=== PATIENT | male | born 1950 | race Caucasian/White ===

== ENCOUNTER 2016-04-28 12:18 | Emergency (ER) | payer OTHER, MEDICARE ==
--- NOTE | 2016-04-28 12:44 | ER Document Report ---
ED Medical Screen (RME) - General Stated Complaint: COUGH, CONGESTION Notes: 65 yo male c/o coughing up blood. pt is chemo patient. Lung cancer, leukemia, throat cancer. received chemo yesterday. reports hemoptysis and blood from feeding tube. Oncologist in [place]. no fever. + headache. pt has trach. TRAVEL OUTSIDE OF THE [place] IN LAST 30 DAYS: No - Related Data Allergies/Adverse Reactions: No Known Allergies Allergy (Unverified 05/22/14 14:33) Physical Exam - Vital signs Vitals: Temp Pulse Resp BP Pulse Ox 98.5 F 78 18 135/79 H 95 04/28/16 12:27 04/28/16 12:27 04/28/16 12:27 04/28/16 12:27 04/28/16 12:27 Course - Vital Signs Vital signs: Temp Pulse Resp BP Pulse Ox 98.5 F 78 18 135/79 H 95 04/28/16 12:27 04/28/16 12:27 04/28/16 12:27 04/28/16 12:27 04/28/16 12:27
[2016-04-28 13:08] LABS: ABSOLUTE LYMPHOCYTES (AUTO) 0.7 10^3/uL (0.5-4.7); ABSOLUTE NEUT (AUTO) 4.4 10^3/uL (1.7-8.2); BASOPHILS % (AUTO) 0.1 % (0-2); HEMATOCRIT 34.7 % (37.9-51.0); HGB HCT DIFFERENCE 1.3; LYMPHOCYTES % (AUTO) 12.7 % (13-45); MEAN CORPUSCULAR HEMOGLOBIN 32.3 pg (27.0-33.4); MEAN CORPUSCULAR HGB CONC 34.6 g/dL (32.0-36.0); MEAN CORPUSCULAR VOLUME 93 fl (80-97); MONOCYTES % (AUTO) 0.6 % (3-13); RED BLOOD COUNT 3.72 10^6/uL (4.35-5.55); RED CELL DISTRIBUTION WIDTH 13.7 % (11.5-14.0); SEGMENTED NEUTROPHILS % (AUTO) 86.6 % (42-78); WHITE BLOOD COUNT 5.1 10^3/uL (4.0-10.5)
[2016-04-28 13:14] LABS: PROTHROMBIN TIME 13.9 SEC (11.4-15.4)
[2016-04-28 13:28] LABS: ALANINE AMINOTRANSFERASE 56 U/L (21-72); ALBUMIN 3.5 g/dL (3.5-5.0); ALKALINE PHOSPHATASE 83 U/L (38-126); ANION GAP 8 (5-19); ASPARTATE AMINO TRANSFERASE 27 U/L (17-59); BILIRUBIN,TOTAL 1.2 mg/dL (0.2-1.3); BLOOD UREA NITROGEN 19 mg/dL (7-20); CALCIUM 9.1 mg/dL (8.4-10.2); CARBON DIOXIDE 31 mmol/L (22-30); CHLORIDE 100 mmol/L (98-107); CREATININE RESULT 0.72 mg/dL (0.52-1.25); GLUCOSE 105 mg/dL (75-110); POTASSIUM 4.7 mmol/L (3.6-5.0); SODIUM 139.2 mmol/L (137-145); TOTAL PROTEIN 5.9 g/dL (6.3-8.2)
--- NOTE | 2016-04-28 13:56 | ER Document Report ---
ED Respiratory Problem - General Mode of Arrival: Ambulatory Information source: Patient TRAVEL OUTSIDE OF THE [place] 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 Patient describes the sputum as being dark red with clots and mostly originating from his nose with some from his G-tube. Patient states that he is eating by mouth, and the G-tube was placed in preemptively. Patient denies fever. Patient claims that his trach might have been moved out of placed yesterday, but is in the proper orientation now. Patient states that he was diagnosed with laryngeal cancer in February 2016 by the [facility] and had a tracheotomy placed in on 03/14/2016. [facility] found lesions to the patient's lungs and are closely monitoring it. Patient gets chemotherapy every Tuesday at the [facility], with the last treatment yesterday. Patient was last seen in the ED on August 2014 with a low white and platelet count secondary to chemotherapy he was receiving for hairy cell leukemia by Dr. Nix. Patient's current oncologist is at the [facility]. Patient's primary care provider is the [facility]. (MAX REEDER) - Related Data Allergies/Adverse Reactions: No Known Allergies Allergy (Unverified 05/22/14 14:33) Past Medical History - General Information source: Patient - Social History Smoking Status: Former Smoker Chew tobacco use (# tins/day): No Frequency of alcohol use: None Drug Abuse: None Family History: Reviewed & Not Pertinent Patient has suicidal ideation: No Patient has homicidal ideation: No Renal/ Medical History: Denies: Hx Peritoneal Dialysis Malignancy Medical History: Reports Hx Leukemia - hairy cell, Reports Hx Lung Cancer, Reports Other - laryngeal cancer Past Surgical History: Reports: Hx Abdominal Surgery - G-tube in place, Other - Trach in place <MAX REEDER - Last Filed: 04/28/16 14:04> Review of Systems - Review of Systems Constitutional: No symptoms reported EENT: See HPI, Nose discharge - dark red blood Cardiovascular: No symptoms reported Respiratory: See HPI, Cough, Hemoptysis Gastrointestinal: See HPI, Other - blood in G-tube Genitourinary: No symptoms reported Male Genitourinary: No symptoms reported Musculoskeletal: No symptoms reported Skin: No symptoms reported Hematologic/Lymphatic: No symptoms reported Neurological/Psychological: No symptoms reported -: Yes All other systems reviewed and negative <MAX REEDER - Last Filed: 04/28/16 14:04> Physical Exam - Vital signs Interpretation: Normal - General General appearance: Alert In distress: None - HEENT Head: Normocephalic, Atraumatic Eyes: Normal Extraocular movements intact: Yes Pupils: PERRL Pharynx: Other - Mass to the posterior left tongue. No active bleeding. Uvula is visualized.. No: Normal Neck: Other - trach in place. No: Normal - Respiratory Respiratory status: No respiratory distress Breath sounds: Normal - Cardiovascular Rhythm: Regular Heart sounds: Normal auscultation - Abdominal Inspection: Other - G-tube in place with dark red blood. No: Normal Distension: No distension Tenderness: Nontender - Back Back: Normal - Extremities General upper extremity: Normal inspection, Normal ROM General lower extremity: Normal inspection, Normal ROM, Normal weight bearing - Neurological Neuro grossly intact: Yes - Psychological Associated symptoms: Normal affect, Normal mood - Skin Skin Temperature: Warm Skin Moisture: Dry Skin Color: Normal <MAX REEDER - Last Filed: 04/28/16 14:04> <GENOVEVA LOJA - Last Filed: 04/28/16 18:26> - Vital signs Vitals: Temp Pulse Resp BP Pulse Ox 98.5 F 78 18 135/79 H 95 04/28/16 12:27 04/28/16 12:27 04/28/16 12:27 04/28/16 12:27 04/28/16 12:27 (MAX REEDER) (GENOVEVA LOJA) Course - Laboratory Result Diagrams: 04/28/16 12:55 04/28/16 12:55 <MAX REEDER - Last Filed: 04/28/16 14:04> - Laboratory Result Diagrams: 04/28/16 12:55 04/28/16 12:55 - Diagnostic Test Radiology reviewed: Image reviewed, Reports reviewed - CT scan shows the tracheostomy tube is located in the anterior mediastinal fat tissue anterior to the trachea. It does not enter the trachea. There is a large mass on the left posterior base of the tongue occluding much of the airway. - Consults Dr. Martin Time consulted: 18:00 Consulted provider: other - credit card control clerk ENT will see the patient in the emergency room at the . Dr. Zepeda Time consulted: 18:20 Consulted provider: other - Will accept in transfer to the emergency room at the and then will contact the ENT doctor. <GENOVEVA LOJA - Last Filed: 04/28/16 18:26> - Re-evaluation Re-evalutation: 04/28/16 16:29 Patient's tracheostomy tube sits anterior to the trachea in the mediastinal fat. 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 Phone call was made to the [facility] where the patient had his tracheostomy placed, they are on diversion and are not accepting patients. (GENOVEVA LOJA) - Vital Signs Vital signs: Temp Pulse Resp BP Pulse Ox 98.5 F 73 16 124/71 97 04/28/16 16:49 04/28/16 16:49 04/28/16 16:49 04/28/16 16:49 04/28/16 16:49 (MAX REEDER) (GENOVEVA LOJA) - Laboratory Laboratory results interpreted by ia: 04/28/16 04/28/16 12:55 12:55 RBC 3.72 L Hgb 12.0 L Hct 34.7 L Seg Neutrophils % 86.6 H Lymphocytes % 12.7 L Monocytes % 0.6 L Absolute Monocytes 0.0 L Carbon Dioxide 31 H Total Protein 5.9 L (MAX REEDER) (GENOVEVA LOJA) Discharge <MAX REEDER - Last Filed: 04/28/16 14:04> <GENOVEVA LOJA - Last Filed: 04/28/16 18:26> - Discharge Clinical Impression: Complication of tracheostomy tube, Posterior pharyngeal bleeding Condition: Stable Disposition: OTHER Additional Instructions: Go to the now to the emergency room where you will see Dr. Martin of the ENT department. Bravo Attestation: 04/28/16 18:26 I personally performed the services described in the documentation, reviewed and edited the documentation which was dictated to the scribe in my presence, and it accurately records my words and actions. (GENOVEVA LOJA) Scribe Documentation - Scribe Written by Bravo:: Bravo Cary, 04/28/2016 1402 acting as scribe for :: Jo <MAX REEDER - Last Filed: 04/28/16 14:04>
[2016-04-28] MEDS ORDERED: FUROSEMIDE INJ/PF 20 MG/2 ML SDV IV ONE (16:33)
[2016-04-28 18:40] VITALS: BP 120/65
== END 2016-04-28 19:02 ==
LOC: ER 12:18
DX: J95.01 Hemorrhage from tracheostomy stoma (principal); R05 Cough; C91.40 Hairy cell leukemia not having achieved remission; C32.9 Malignant neoplasm of larynx, unspecified; C34.90 Malignant neoplasm of unspecified part of unspecified bronchus or lung; Y83.3 Surgical operation with formation of external stoma as the cause of abnormal reaction of the patient, or of later complication, without mention of misadventure at the time of the procedure; Z93.1 Gastrostomy status; Z79.899 Other long term (current) drug therapy
CPT/HCPCS: 36415; 70491; 80053; 85025; 85610; 99284; J1940

== ENCOUNTER 2016-09-09 09:51 | Emergency (ER) | payer OTHER, MEDICARE ==
--- NOTE | 2016-09-09 10:02 | ER Document Report ---
ED Medical Screen (RME) - General Chief Complaint: Problem with Feeding Tube Stated Complaint: FEEDING TUBE PROBLEM Time Seen by Provider: 09/09/16 10:01 TRAVEL OUTSIDE OF THE [place] IN LAST 30 DAYS: No - HPI Notes: 09/09/16 10:01 Feeding tube is leaking around the ostomy site near the balloon check possibly replacement of feeding tube. - Related Data Allergies/Adverse Reactions: No Known Allergies Allergy (Unverified 09/09/16 09:53) Past Medical History Renal/ Medical History: Denies: Hx Peritoneal Dialysis Malignancy Medical History: Reports Hx Leukemia - hairy cell, Reports Hx Lung Cancer Past Surgical History: Reports: Hx Abdominal Surgery - G-tube in place, Other - Trach in place Physical Exam - Vital signs Vitals: Temp Pulse Resp BP Pulse Ox 98.6 F 88 26 H 111/55 L 98 09/09/16 09:53 09/09/16 09:53 09/09/16 09:53 09/09/16 09:53 09/09/16 09:53 - Abdominal Notes: Drainage around the feeding tube Course - Vital Signs Vital signs: Temp Pulse Resp BP Pulse Ox 98.6 F 88 26 H 111/55 L 98 09/09/16 09:53 09/09/16 09:53 09/09/16 09:53 09/09/16 09:53 09/09/16 09:53
--- NOTE | 2016-09-09 10:20 | ER Document Report ---
ED General - General Chief Complaint: Problem with Feeding Tube Stated Complaint: FEEDING TUBE PROBLEM Time Seen by Provider: 09/09/16 10:01 Notes: 65-year-old male with throat cancer status post trach and G-tube inserted greater than 6 months ago presents with leaking around the feeding tube, for 2 days, increasing, worse after feeds. Minimal pain. Unchanged granuloma. This is managed by his partner. He seen at [facility] in [place] for most things at the [facility] in [place] for his cancer treatments. Denies vomiting, is tolerating feeds well. The site. This particular tube has been in for at least 4 months. TRAVEL OUTSIDE OF THE [place] IN LAST 30 DAYS: No - Related Data Allergies/Adverse Reactions: No Known Allergies Allergy (Unverified 09/09/16 09:53) Past Medical History - Social History Smoking Status: Unknown if Ever Smoked Family History: Reviewed & Not Pertinent Patient has suicidal ideation: No Patient has homicidal ideation: No Renal/ Medical History: Denies: Hx Peritoneal Dialysis Malignancy Medical History: Reports Hx Leukemia - hairy cell, Reports Hx Lung Cancer Past Surgical History: Reports: Hx Abdominal Surgery - G-tube in place, Other - Trach in place Review of Systems - Review of Systems Notes: GEN: Denies fever, chills, weight loss ENT: Denies sore throat, nasal discharge, ear pain EYES: Denies blurry vision, eye pain, discharge CV: Denies chest pain, palpitations, edema RESP: Denies cough, shortness of breath, wheezing GI: D mild abdominal pain at the site of the G-tube, G-tube leaking MSK: Denies joint pain/swelling, edema, SKIN: Denies rash, skin lesions LYMPH: Denies swollen glands/lymph nodes NEURO: Denies headache, focal weakness or numbness, dizziness PSYCH: Denies depression, suicidal or homicidal ideation Physical Exam - Vital signs Vitals: Temp Pulse Resp BP Pulse Ox 98.6 F 88 26 H 111/55 L 98 09/09/16 09:53 09/09/16 09:53 09/09/16 09:53 09/09/16 09:53 09/09/16 09:53 - Notes Notes: General: No acute distress, well-nourished Head: Atraumatic, normocephalic ENT: Mouth normal, oropharynx moist, no exudates or tonsillar enlargement tracheostomy in place. Eyes: Conjunctiva normal, pupils equal, lids normal Neck: No JVD, supple, no guarding CVS: Normal rate, regular rhythm, no murmurs Resp: No resp distress, equal and normal breath sounds bilaterally GI: Nondistended, soft, no tenderness to palpation, no rebound or guarding. Left upper quadrant G-tube site with mild leakage, expected granulomatous change at this site. No tenderness or trauma. No signs of infection. Ext: No deformities, no edema, normal range of motion in upper and lower ext Skin: No rash, warm Lymphatic: No lymphadeopathy noted Neuro: Awake, alert. Face symmetric. Course - Re-evaluation Re-evalutation: 09/09/16 10:19 Patient presents with leaking around his G-tube. It is a mature tract by his history, and looks well. This is probably due to changes in the tracts from granulomatous change. He does not have any signs of infection. His abdominal exam is otherwise benign and his vital signs are stable. I will attempt replacement of the G-tube, ideally with one size larger. He is stable. 09/09/16 10:36 Feeding tube replaced successfully. There was egress of gastric juice during and after the procedure through the tube. Patient tolerated well. Dressed appropriately. Follow-up primary care. - Vital Signs Vital signs: Temp Pulse Resp BP Pulse Ox 98.6 F 88 26 H 111/55 L 98 09/09/16 09:53 09/09/16 09:53 09/09/16 09:53 09/09/16 09:53 09/09/16 09:53 Procedures - Additional Procedures Gastric tube replacement Time performed: 22:37 Additional Procedures: Gastric tube replacement - Appropriate tube was obtained. Old feeding tube removed after deflation of balloon. Immediate egress of enteral feed through the stoma. Suction this out of the way, replaced feeding tube with 20 [place]. Inflated balloon after egressive feed through the new feeding tube. No further leakage or complications. Well tolerated. Discharge - Discharge Condition: Good Disposition: HOME, SELF-CARE Additional Instructions: I have replaced your feeding tube with a 20 [place] tube. Your balloon it got bad. We did note that we did spill some of your morning feed and if he would like to replace that you may. Keep an eye out for infection pain and vomiting. [facility].
[2016-09-09 10:43] VITALS: BP 117/70
== END 2016-09-09 10:49 | disposition home or self-care (01) ==
LOC: ER 09:51
PROC: 0D20XUZ Change Feeding Device in Upper Intestinal Tract, External Approach (ICD-10-PCS; principal; 2016-09-09)
DX: K94.23 Gastrostomy malfunction (principal); Y83.3 Surgical operation with formation of external stoma as the cause of abnormal reaction of the patient, or of later complication, without mention of misadventure at the time of the procedure; C14.0 Malignant neoplasm of pharynx, unspecified; R10.9 Unspecified abdominal pain; Z85.6 Personal history of leukemia; Z85.118 Personal history of other malignant neoplasm of bronchus and lung; Z93.0 Tracheostomy status
CPT/HCPCS: 99282